=== PATIENT | female | born 1980 | race Caucasian/White ===

== ENCOUNTER 2023-06-11 05:29 | Emergency (ER) | payer OTHER, SELFPAY ==
[2023-06-11 05:45] VITALS: BP 125/69; PULSE 96; RESP 16; TEMP 37.2; O2SAT 97; BMI 40.0
--- NOTE | 2023-06-11 06:22 | ED.URI ---
HPI - URI/Sore Throat General Chief Complaint: Upper Respiratory Symptoms Stated Complaint: Cold symptoms Time Seen by Provider: 06/11/23 06:07 Source: patient Mode of arrival: ambulatory History of Present Illness HPI Narrative: 42-year-old female with history of asthma presents with flu-like symptoms, body aches, low-grade fever with headache, rhinorrhea and sore throat. Related Data Allergies Allergy/AdvReac Type Severity Reaction Status Date / Time No Known Allergies Allergy Verified 06/11/23 05:48 Review of Systems Review of Systems: Pertinent positives and negatives as stated in HPI [facility] Past Medical History Source: nursing notes reviewed Social History Social History Advance Directives: No Advance Directives Information Provided: Yes Physical Exam Vital Signs: Vital Signs: Last Vital Signs Temp 99 F 06/11/23 05:45 Pulse 96 06/11/23 05:45 Resp 16 06/11/23 05:45 BP 125/69 06/11/23 05:45 Pulse Ox 97 06/11/23 05:45 O2 Del Method Room Air 06/11/23 05:45 BMI result Body Mass Index 40.0 VITAL SIGNS: Reviewed. GENERAL: Well developed, well nourished, in no acute distress. HEAD: Normocephalic/atraumatic EYES: PERRLA, EOMI EARS: Ext canals without abnormality, TMs non-bulging and non-erythematous NOSE: Nares patent bilateral OROPHARYNX: no oral lesions noted, posterior pharynx clear and non-erythematous without noted tonsillar enlargement/erythema/exudates NECK: Supple, no adenopathy LUNGS: Normal breath sounds. No adventitious sounds or accessory muscle use. SpO2<97> CARDIOVASCULAR: Regular rate and rhythm without noted murmurs ABDOMEN: Soft, non-tender, non-distended with bowel sounds. MUSCULOSKELETAL: No tenderness, deformities, or effusions noted on gross inspection. EXTREMITIES: No cyanosis, clubbing or edema. SKIN: Inspection of the skin reveals no rashes NEUROLOGIC: Alert and oriented x 4. Strength and sensation to light touch were grossly intact x 4. Medical Decision Making Medical Decision Making [facility] Narrative: 42-year-old female with history and clinical presentation suggestive of viral syndrome, no history year clinical symptoms to suggest acute asthma exacerbation. I reviewed all investigations and patient's viral testing is positive for COVID-19. Differential Diagnosis Differential Diagnoses: The differential diagnosis associated with the presentation includes Please see the discussion above Admission/Observation Consideration of admission/observation: Escalation of care including admission/observation considered Please see the discussion above Lab Data MDM Lab Attestation statement: I reviewed the patient's lab results. Please see the discussion above Labs: Lab Results 06/11/23 Range/Units 06:21 COVID-19 ([facility]) Positive A (Negative) COVID-19 Clin Com See Note Influenza Type A ([facility]) Negative (Negative) Influenza Type B ([facility]) Negative (Negative) Influenza A & B Note See Note Discharge Plan Discharge Clinical Impression: Viral syndrome, COVID-19 Patient Disposition: Home, Self-Care Instructions: Viral Syndrome (ED), COVID-19 (Coronavirus Disease 2019) (ED) Additional Instructions: You must isolate for 5 days and then follow all CDC and implore guidelines. Treat any fevers/body aches with [id number] Tylenol/ibuprofen, get plenty of rest and drink plenty of fluids. Return to the ER for any worsening symptoms. Referrals: Simi Hidalgo NP [Primary Care Provider] -
[2023-06-11 06:46] LABS: COVID-19 Test Positive (Negative); IDNOW Serial# BCCEAD1C
[2023-06-11 06:49] LABS: IDNOW Serial# 08D9AD1C; Influenza A Negative (Negative); Influenza B2 Negative (Negative)
[2023-06-11 07:15] VITALS: BP 107/61; PULSE 94; RESP 18; O2SAT 97
--- NOTE | 2023-06-11 07:26 | PC.NURSE ---
pt a&ox3. respirations even and unlabored. lung sounds clear bilaterally. pt denies pain at this time.
== END 2023-06-11 07:27 | disposition home or self-care (01) ==
PROVIDERS: Emergency Provider Student in an Organized Health Care Education/Training Program; PCP Nurse Practitioner Family
DX: U07.1 COVID-19 (principal); B34.9 Viral infection, unspecified; J02.9 Acute pharyngitis, unspecified; R50.9 Fever, unspecified
CPT/HCPCS: 87502; 87635; 99283; 99284